=== PATIENT | female | born 1950 | race American Indian/Alaskan Native ===

== ENCOUNTER 2017-05-08 10:08 | Emergency (ER) | payer MEDICARE, BC ==
[2017-05-08 10:09] VITALS: BMI 22.1
--- NOTE | 2017-05-08 11:02 | C.PDOC ---
History Of Present Illness <Jojo Kingsley - Last Filed: 05/08/17 16:37> <Chayo Perry - Last Filed: 05/09/17 14:09> CC: "weakness" HPI: 67 year old female with past medical history of mitral valve replacement, HTN, and cranial hematoma who presents to the ED for weakness. She states she started to have a general feeling of weakness. She states what prompted her to come to the ED today is that she could not get herself to complete her morning routine such as brushing her teeth or taking a shower as she felt very weak. She states she has nasal congestion, runny nose, shortness of breath, coughing with clear phlegm. She states she started to feel short of breath on . She went and saw Dr. Thorpe who stated for her to stop taking Amlodipine and to start taking Valsartan. She says she can usually walk about a block and half with her cane and she takes her time walking up the stairs because of her hip revisions and replacements. She also states she has a headache with pain behind her eyes that started on Monday. She states the pain has been constant since Monday and feels like a dull pain. She denies blurry vision or change in vision. She states she occasionally gets headaches every few months. She denies having migraines. She states the only thing she has tried for her symptoms is vitamin C. She denies fever, chills, night sweats, chest pain, or palpitations. She states her had similar symptoms prior at home such as nasal congestion. She also states she has been off her blood thinner Coumadin since her head bleed in 2014. PMD: Dr. Thorpe Past Medical History: HTN Past Surgical History: Hematoma head 2012; mitral valve replacement 02/2013; bilateral hip replacement and revisions; back surgery Medications: Lopressor 50mg bid; Valsartan 10mg daily; Aspirin 81mg Allergies: NKDA Social: denies smoking, alcohol or illicit drug use Family History: Dad heart disease; mom - thyroid and pancreatic cancer (Chayo Perry) <Jojo Kingsley - Last Filed: 05/08/17 16:37> History Per: Patient History/Exam Limitations: no limitations <Chayo Perry - Last Filed: 05/09/17 14:09> Chief Complaint (Nursing): Weakness/Neurological Deficit Past Medical History - Medical History PMH: Atrial Fibrillation (Hx of paroxysmal atrial fib.), Cardia Arrhythmia, CVA (hemmorhagic), Deep Vein Thrombosis, HTN, Mitral Valve Prolapse, Peripheral Edema Denies: CHF, Chronic Kidney Disease Family History: States: Unknown Family Hx - Social History Hx Tobacco Use: No Hx Alcohol Use: No Hx Substance Use: No - Immunization History Hx Tetanus Toxoid Vaccination: Yes Hx Influenza Vaccination: No Hx Pneumococcal Vaccination: No <Chayo Perry. - Last Filed: 05/09/17 14:09> Vital Signs: Last Vital Signs Temp 98.1 F 05/08/17 17:28 Pulse 84 05/08/17 17:28 Resp 20 05/08/17 17:28 BP 130/77 05/08/17 17:28 Pulse Ox 100 05/08/17 17:28 - [facility] Procedures CLOSURE SKIN & SUBCUTANEOUS NEC (12/01/13) COLONOSCOPY (04/07/98) DX ULTRASOUND-HEART (11/15/12) EXTIRPATION OF MATTER FROM CEREBELLUM, OPEN APPROACH (03/24/15) INJECT/INFUSE NEC (05/01/04) TRANSFUSE NONAUT FROZEN PLASMA IN PERIPH VEIN, PERC (03/24/15) Review Of Systems Constitutional: Negative for: Fever, Chills, Sweats Eyes: Positive for: Pain. Negative for: Vision Change ENT: Positive for: Nose Discharge, Nose Congestion. Negative for: Ear Pain, Ear Discharge, Nose Pain, Throat Pain Cardiovascular: Negative for: Chest Pain, Palpitations Respiratory: Positive for: Cough, Shortness of Breath, Sputum Gastrointestinal: Negative for: Nausea, Vomiting, Abdominal Pain, Diarrhea, Constipation Genitourinary: Negative for: Dysuria Neurological: Positive for: Weakness, Headache <Chayo Perry S. - Last Filed: 05/09/17 14:09> Physical Exam - Physical Exam Appears: No Acute Distress Skin: Normal Color Head: Atraumatic, No Tenderness Eye(s): bilateral: Normal Inspection, PERRL, EOMI Ear(s): Bilateral: Normal Nose: No Discharge, No Epistaxis Oral Mucosa: Moist Tongue: Normal Appearing Lips: Normal Appearing Throat: Normal, No Erythema, No Exudate Cardiovascular: Rhythm Regular, No Murmur Respiratory: Normal Breath Sounds, No Accessory Muscle Use, No Rales Gastrointestinal/Abdominal: Normal Exam, Soft, No Tenderness Extremity: Normal ROM, No Tenderness, No Pedal Edema Extremity: Bilateral: Normal ROM Neurological/Psych: Oriented x3, Normal Speech, Normal Cranial Nerves, Normal Motor, Normal Sensation <Chayo Perry - Last Filed: 05/09/17 14:09> ED Course And Treatment - Laboratory Results Result Diagrams: 05/08/17 13:07 05/08/17 13:07 ECG: Interpreted By Me ECG Rhythm: Sinus Rhythm, 1st Degree HB Rate From EC Pulse Ox Interpretation: Normal <Jojo Kingsley - Last Filed: 05/08/17 16:37> - Laboratory Results Result Diagrams: 05/08/17 13:07 05/08/17 13:07 O2 Sat by Pulse Oximetry: 100 <Chayo Perry - Last Filed: 05/09/17 14:09> Supervising Attending Note - Attestation: I have personally seen and examined this patient.: Yes I have fully participated in the care of the patient.: Yes I have reviewed all pertinent clinical information, including history, physical exam and plan: Yes <Jojo Kingsley - Last Filed: 05/08/17 16:37> <Chayo Perry - Last Filed: 05/09/17 14:09> - Notes: Notes:: GEN WEAKNESS X 4 DAYS. UNABLE TO COMPLETE ROUTINE DAILY ACTIVITY DUE TO WEAKNESS. +COUGH, RUNNY NOSE. NO FEVER. (Jojo Kingsley) Progress - Data Reviewed Data Reviewed: Lab, Diagnostic imaging, EKG <Jojo Kingsley - Last Filed: 05/08/17 16:37> <Chayo Perry - Last Filed: 05/09/17 14:09> - Re-Evaluation Re-evaluation Note: 05/08/17 14:06 EXMA UNCH FROM PRIOR. +DIMER. WILL CTA 05/08/17 16:37 NARD APPEARS COMFORTABLE VSS. CTA NEG. NO INDICATION FOR ADMISSION, WILL FU PMD THIS WEEK (Jojo Kingsley) Medical Decision Making <Jojo Kingsley - Last Filed: 05/08/17 16:37> <Chayo Perry - Last Filed: 05/09/17 14:09> Medical Decision Making: Shortness of breath secondary to PE vs. Upper Respiratory Infection vs. Mitral Valve replacement - f/u influenza - f/u chest xray - EKG NSR 90bpm - f/u cbc, cmp, coags, d-dimer - ECHO (11/11/15): Moderate to severe concentric left ventricular hypertrophy. Left ventricle systolic function is mildly impaired. The ejection fraction is 45 -50%. (Chayo Perry) Disposition Counseled Patient/Family Regarding: Studies Performed, Diagnosis, Need For Followup - Disposition Disposition Time: 16:37 <Jojo Kingsley - Last Filed: 05/08/17 16:37> <Chayo Perry - Last Filed: 05/09/17 14:09> - Disposition Disposition: HOME/ ROUTINE Condition: STABLE Instructions: Weakness (ED) Forms: [facility] ([place]) - Clinical Impression Clinical Impression: Weakness, Shortness of breath
--- NOTE | 2017-05-08 13:06 | RAD ---
HISTORY: shortness of breath COMPARISON: Chest x-ray performed 11/09/15 TECHNIQUE: Chest, one view. FINDINGS: Examination limited by habitus. LUNGS: Small left pleural effusion. Bibasilar atelectasis/ infiltrates. No definite pneumothorax. Please note that chest x-ray has limited sensitivity for the detection of pulmonary masses. CARDIOVASCULAR: Median sternotomy wires. Cardiomegaly. OSSEOUS STRUCTURES: Osseous demineralization. Degenerative changes. VISUALIZED UPPER ABDOMEN: Tenting of the right hemidiaphragm. OTHER FINDINGS: None. IMPRESSION: Cardiomegaly. Small left pleural effusion. Bibasilar atelectasis/ infiltrates. Tenting of the right hemidiaphragm.
[2017-05-08 13:17] LABS: HEMOGLOBIN 13.4 g/dL (11.0-16.0); MEAN CORPUSCULAR HGB CONC 32.3 g/dL (33.0-37.0); MEAN PLATELET VOLUME 11.2 fL (7.2-11.7); PLATELET COUNT 159 K/uL (130-400); RBC 5.84 Mil/uL (3.80-5.20); RED CELL DISTRIBUTION WIDTH 15.3 % (11.5-14.5); WHITE BLOOD COUNT 7.7 K/uL (4.8-10.8)
[2017-05-08 13:24] LABS: MEAN CELL VOLUME 71.2 fL (81.0-99.0)
[2017-05-08 13:27] LABS: ALB/GLOB RATIO 0.9 (1.0-2.1); ALT/SGPT 19 U/L (9-52); AST/SGOT 22 U/L (14-36); BLOOD UREA NITROGEN 19 mg/dL (7-17); CALCIUM 8.6 mg/dl (8.6-10.4); GFR AFRICAN-AMERICAN > 60; GFR NON-AFRICAN AMERICAN 55
[2017-05-08 13:32] LABS: INR 1.1
[2017-05-08] MEDS ORDERED: Iodixanol 320 MG/ML 100 ML BOTTLE IV ONE (14:53)
[2017-05-08 15:10] LABS: EOS # 0.2 K/uL (0.0-0.7); LYMPH # 0.5 K/uL (1.0-4.3); MONO # 0.9 K/uL (0.0-0.8); NEUT # 6.3 K/uL (1.8-7.0)
[2017-05-08 15:12] LABS: EOSINOPHIL 2 % (0-4); LYMPHOCYTE 7 % (20-40); MONOCYTE 10 % (0-10); MYELOCYTE 1 % (0-0); NEUTROPHIL 80 % (50-75); PLATELET ESTIMATE NORMAL (NORMAL); TOTAL CELLS COUNTED 100
--- NOTE | 2017-05-08 16:14 | CT ---
CTA chest PE protocol Indication: SOB r/o PE Technique: Contiguous axial images were obtained through the chest with intravenous contrast enhancement. Sagittal and coronal reconstructions were generated and reviewed. This CT exam was performed using 1 or more of the following dose reduction techniques: Automated exposure control, adjustment of the MAA and/or kV according to patient size, and/or use of iterative reconstruction technique. IV Contrast: 100 mL Visipaque 320 Radiation dose (DLP): 491.08 MGy-cm. Comparison: Chest x-ray performed 05/08/17 Findings: Visualized portions of the inferior thyroid gland appear heterogeneous and enlarged with multiple probable nodules. The mediastinal and hilar vascular structures appear within normal limits. Cardiomegaly. Median sternotomy wires. No large central or segmental pulmonary embolus evident. No focal consolidation. No pleural effusion. No pneumothorax. 3 mm probable right apical calcified granuloma. No suspicious pulmonary nodules measuring greater than 5 mm. Limited visualized portions of the upper abdomen ; 7 mm probable splenule. Otherwise unremarkable unenhanced appearance. No acute osseous abnormality is detected. Impression: Heterogeneous enlarged appearance of the included inferior thyroid gland with numerous probable nodules. Correlation with thyroid function tests and outpatient thyroid ultrasound recommended for further evaluation if indicated. No large central or segmental pulmonary embolus identified. Cardiomegaly. 3 mm right apical calcified granuloma.
[2017-05-08 17:29] VITALS: BP 130/77; PULSE 84; RESP 20; TEMP 98.1; O2SAT 100
--- NOTE | 2017-05-10 16:42 | CARD ---
APPROVED REPORT EKG Measurement Heart [id number] <Conclusion> Sinus rhythm with 1st degree AV block Otherwise normal ECG
== END 2017-05-08 17:45 | disposition home or self-care (01) ==
LOC: C.ER 10:08
DX: R53.1 Weakness (principal); R06.02 Shortness of breath
CPT/HCPCS: 71045; 71275; 80053; 85025; 85378; 85610; 85730; 87804; 93005; 99285; Q9967